=== PATIENT | male | born 1990 | race Caucasian/White ===

== ENCOUNTER 2024-01-03 19:18 | Emergency (ER) | payer OTHER, SELFPAY ==
[2024-01-03 19:31] VITALS: BP 142/75; PULSE 94; RESP 16; TEMP 36.9; O2SAT 99
--- NOTE | 2024-01-03 19:43 | ED.SKABFB ---
HPI - Skin/Abscess/Foreign Bdy General Chief complaint: Skin/Abscess/Foreign Body Stated complaint: Rash Time Seen by Provider: 01/03/24 19:35 Source: patient Mode of arrival: ambulatory Limitations: no limitations History of Present Illness HPI narrative: Trey is a 33-year-old male patient presenting to clinic today with complaints of a rash all over his body. He reports he started out with a poison karen rash last Saturday it is gradually gotten worse. He now has spots to his face, neck, back, abdomen, legs, and bilateral arms. Reports that the rash is itchy. Denies any shortness of breath, tongue swelling, or difficulty swallowing. Related Data Allergies Allergy/AdvReac Type Severity Reaction Status Date / Time No Known Allergies Allergy Verified 01/03/24 19:45 Review of Systems Review of Systems: Pertinent positives per HPI. Patient denies any fever, chills, headache, visual changes, dizziness, cough, runny nose, sore throat, shortness of breath, chest pain, palpitations, nausea, vomiting, diarrhea, constipation, abdominal pain, or any urinary issues. PMFSH Comments At the time of my signature, I reviewed and agree with the nursing past medical, surgical, social, and family history. There is no relevant family history pertinent to the patient complaint. Exam Narrative: General: Well-developed, well nourished, in no apparent distress Head: Normocephalic, atraumatic. Cardio: Regular rate and rhythm, s1 and s2 normal, no murmur appreciated. Resp: Clear to auscultation bilaterally, no rhonchi, rales, wheezing or rubs. Integumentary: [place], warm, and dry, red raised blistered rash to the arms, legs, face, neck, back and abdomen Course Course Emergency Course: Portions of this record may have been created with voice recognition software. Level of Care: Express Care Visit Vital Signs Vital signs: Vital Signs Temperature 36.9 C 01/03/24 19:31 Pulse Rate 94 01/03/24 19:31 Respiratory Rate 16 01/03/24 19:31 Blood Pressure 142/75 H 01/03/24 19:31 Pulse Oximetry 99 01/03/24 19:31 Oxygen Delivery Room Air 01/03/24 19:31 Temperature 36.9 C 01/03/24 19:31 Pulse Rate 94 01/03/24 19:31 Respiratory Rate 16 01/03/24 19:31 Blood Pressure 142/75 H 01/03/24 19:31 Pulse Oximetry 99 01/03/24 19:31 Oxygen Delivery Room Air 01/03/24 19:31 Vital signs reviewed MDM - Skin/Abscess/Foreign Bdy MDM Narrative Medical decision making narrative: At the time of visit patient is resting comfortably on the exam table. Patient appears to be nontoxic. Medications given: Dexamethasone 10 mg Plan: I suspect patient has poison karen dermatitis. Prescription for prednisone and triamcinolone cream was sent to the pharmacy. Dexamethasone 10 mg IM given in the clinic today. Supportive measures were discussed with the patient and they voiced understanding discharge instructions and agrees to treatment plan. Return precautions reviewed Differential Diagnosis Differential diagnosis: Likely abscess of skin or subcutaneous tissue, viral exanthem, dermatophytosis, urticaria, allergic reaction to drug, cellulitis, insect bites, impetigo and contact dermatitis Discharge Plan Discharge Clinical Impression: Allergic dermatitis due to poison karen Patient Disposition: Home, Self-Care Condition: Stable Instructions: Antibiotic Form, Poison Karen (ED) Additional Instructions: Apply triamcinolone cream as directed Take prednisone as directed Avoid hot showers May apply calamine lotion to rash Avoid scratching and this can cause secondary infection May take benadryl 25-50mg every 6 hours as needed for itching. Follow up with your PCP in 3-5 days if symptoms persist or sooner if they worsen Go to the Emergency Room if symptoms worsen- fever, rash spreading with treatment, shortness of breath, tongue swelling, drooling, or chest pain Prescriptions: New prednisone 10 mg tab
[2024-01-03] MEDS: dexAMETHasone SOD PHOS INJ 10 MG/ML 1 ML VIAL IM (19:50)
== END 2024-01-03 19:55 | disposition home or self-care (01) ==
PROVIDERS: Emergency Provider Nurse Practitioner Family; PCP Family Medicine
DX: L23.7 Allergic contact dermatitis due to plants, except food (principal)
CPT/HCPCS: 96372; 99213; G0463; J1100